=== PATIENT | male | born 1960 | race African-American/Black ===

== ENCOUNTER 2024-06-06 03:08 | Emergency (ER) | payer OTHER ==
[~2024-06-06] VITALS: Ht 185.4 cm; Wt 95.3 kg
[2024-06-06] MEDS ORDERED: Cyclobenzaprine Hydrochlorid 10 MG TAB PO ONE (03:35)
[2024-06-06] MEDS ORDERED: Acetaminophen/Oxycodone 5 MG/325 MG TABLET PO ONE (04:30)
[2024-06-06] MEDS ORDERED: CYCLOBENZAPRINE5 M3 PO (06:29)
[2024-06-06] MEDS ORDERED: MELOXICAM15 MG PO (06:33)
[2024-06-06] MEDS ORDERED: LIDO KING1 EACH T (06:47)
== END 2024-06-06 06:59 | disposition home or self-care (01) ==
LOC: ED 03:08
DX: M62.830 Muscle spasm of back (principal); M54.2 Cervicalgia; I10 Essential (primary) hypertension; E11.9 Type 2 diabetes mellitus without complications; Z87.891 Personal history of nicotine dependence